=== PATIENT | male | born 1980 | race Caucasian/White ===

== ENCOUNTER 2021-01-28 16:46 | Emergency (ER) | payer SELFPAY ==
[~2021-01-28] VITALS: Ht 188 cm; Wt 73.6 kg
--- NOTE | 2021-01-28 17:14 | RAD ---
EXAM: XR CHEST 1V 01/28/2021 5:00 PM CLINICAL INDICATION: Shortness of breath, history of pneumothorax COMPARISON: None TECHNIQUE: AP upright view of the chest FINDINGS: The heart is normal in size. The lungs are well-expanded. There is suture material at the left apex. No consolidation, pleural effusion or pneumothorax. No acute osseous abnormality. A rectan gular electronic device projects over the mid thoracic spine. IMPRESSION: Surgical changes at the left apex. No acute cardiopulmonary abnormality. Electronically signed by: Maryann Amezquita MD (01/28/2021 5:11 PM) [id number]
[2021-01-28] MEDS ORDERED: ACETAMINOPHEN 325 MG TABLET PO ONE (17:30)
--- NOTE | 2021-01-28 17:36 | EKG ---
[address] [address] Test Date: 2021-01-28 Test Time: 17:24:18 Pat Name: CLEMENCIA LUU Department: Room: Gender: M Control Room Helper: JODY : 1980 Requested By: DAVID LAGOS Order Number: [id number] Reading MD: Abe Finley Measurements Intervals [place] Rate: 87 P: 69 HI: 136 QRS: -39 QRSD: 94 T: 47 QT: 334 QTc: 402 Interpretive Statements SINUS RHYTHM ABNORMAL LEFT AXIS DEVIATION NON SPECIFIC ST-T WAVE CHANGES Electronically Signed On 02-04-2021 10:41:43 RISK MANAGEMENT ANALYST by Abe Finley
--- NOTE | 2021-01-28 17:41 | PHYS DOC ---
Past History Additional Past Medical Histor: marfins syndrome (DAVID LAGOS DO) Past Surgical History: Appendectomy, Other Additional Past Surgical Histo: collapsed lung (DAVID LAGOS DO) General Adult EDM: Chief Complaint: SHORTNESS OF BREATH HPI: HPI: 40-year-old male past medical history of Marfan's and left pneumothoraces status post pleurodesis at 18 (normally follows with [facility]), presents to the ED with complaints of right-sided scapular pain, sharp and radiating around to the chest that started while patient was driving to his worksite. Patient states he was reaching behind his head with his right hand when he heard a pop and the 4/10 pain started. States symptoms are similar to collapsed lung on the left side. Reports some mild associated shortness of breath. Reports arrhythmia in someone in his family and he is currently being monitored by x ray control equipment repairer with a loop recorder. No personal or family history of AAA, AAD, CAD, sudden or unexplain able (under 50 years of age or with exertion), or clotting disorders. (DAVID LAGOS DO) Review of Systems: Review of Systems: Constitutional: Denies fever or chills Eyes: Denies change in visual acuity HENT: Denies nasal congestion or sore throat Respiratory: Denies cough or shortness of breath Cardiovascular: Denies chest pain or edema GI: Denies abdominal pain, nausea, vomiting, bloody stools or diarrhea : Denies dysuria Musculoskeletal: Denies back pain or joint pain Integument: Denies rash Neurologic: Denies headache, focal weakness or sensory changes Endocrine: Denies polyuria or polydipsia Lymphatic: Denies swollen glands Psychiatric: Denies depression or anxiety (DAVID LAGOS DO) Allergies: Allergies: Allergies Coded Allergies Type Severity Reaction Last Updated Verified gluten Allergy Unknown 01/28/21 Yes (DAVID LAGOS DO) Physical Exam: PE: Constitutional: Well developed, well nourished, no acute distress, non-toxic appearance, thin and tall HENT: Normocephalic, atraumatic, Eyes: EOMI, conjunctiva normal, no discharge. Neck: Normal range of motion, supple, Cardiovascular: S1/2 present, regular rhythm Lungs & Thorax: Speaking in full sentences, bilateral equal chest rise, no tachypnea or increased work of breathing Abdomen: soft, no tenderness, Skin: Warm, dry, no erythema, no rash. [] Back: No midline tenderness, no CVA tenderness. [] Extremities: No tenderness, no cyanosis, no lower extremity edema, right shoulder with normal joint range of motion Neurologic: Alert and oriented X 3, normal motor function, normal sensory function, no focal deficits noted. [] Psychologic: Affect normal, judgement normal, mood-anxious (DAVID LAGOS DO) Current Patient Data: Vital Signs: Vital Signs Date Time Temp Pulse Resp B/P (MAP) Pulse Ox O2 Delivery O2 Flow Rate FiO2 01/28/21 16:55 98.5 86 18 131/84 (100) 99 Room Air (DAVID LAGOS DO) EKG: EKG: Sinus rhythm 87 bpm, no T wave inversion, no ST elevation or ST depression, J point elevation in V2, no prior for comparison (DAVID LAGOS DO) EKG: My interpretation EKG shows a sinus rhythm at 87 bpm. No acute morphology. Does have a left axis changes. S2 and 3. But no findings acute STEMI or contralateral changes. Time EKG is 1724 hrs. My interpretation EKG #2 shows a sinus rhythm at 76 bpm. Leftward axis. No acute interval change. No findings of acute STEMI. Time of EKG is 2022 hrs. (LENORE YORK MD) Radiology/Procedures: Radiology/Procedures: [] IMAGING REPORT Signed PATIENT: CLEMENCIA LUU ACCOUNT: [id number] : 1980 LOCATION: ER AGE: 40 SEX: M EXAM STATUS: REG ER ORD. PHYSICIAN: DAVID LAGOS DO REASON: soa, h/o penuomothorax PROCEDURE: CHEST AP ONLY EXAM: XR CHEST 1V 01/28/2021 5:00 PM CLINICAL INDICATION: Shortness of breath, history of pneumothorax COMPARISON: None TECHNIQUE: AP upright view of the chest FINDINGS: The heart is normal in size. The lungs are well-expanded. There is suture material at the left apex. No consolidation, pleural effusion or pneumothorax. No acute osseous abnormality. A rectangular electronic device projects over the mid thoracic spine. IMPRESSION: Surgical changes at the left apex. No acute cardiopulmonary abnormality. Electronically signed by: Maryann Amezquita MD (01/28/2021 5:11 PM) [id number] DICTATED AND SIGNED BY: MARYANN AMEZQUITA MD DATE: 01/28/21 171 CC: [place]; DAVID LAGOS DO ~MTH0 0 (DAVID LAGOS DO) Radiology/Procedures: [place] [id number] IMAGING REPORT Signed PATIENT: CLEMENCIA LUU ACCOUNT: [id number] : 1980 LOCATION: ER AGE: 40 SEX: M EXAM STATUS: REG ER ORD. PHYSICIAN: LENORE YORK MD REASON: hx spont. pneumo, chest pain, dyspnea, OMNI 350, 100ml PROCEDURE: CT ANGIOGRAPHY CHEST Exam: CT of chest with contrast INDICATION: Chest pain, history of spontaneous pneumothorax TECHNIQUE: Sequential axial images through the chest obtained following the administration 100 mL of Omni 350 IV contrast. Sagittal and coronal reformatted images were reconstructed from the axial data and reviewed. 3-D reformatted images were reconstructed from the axial data and reviewed. Exposure: One or more of the following in the visualized dose reduction techniques were utilized for this examination: 1. Automated exposure control 2. Adjustment of the MA and/or KV according to patient size 3. Use of iterative of reconstructive technique Comparisons: Chest x-ray same day FINDINGS: Visualized portions of the thyroid are unremarkable. No enlarged mediastinal lymph nodes are identified. Heart size is normal. No pericardial effusion. Thoracic aorta has a normal course and caliber. Pulmonary artery is not enlarged. No pulmonary embolus identified within the main, lobar or segmental pulmonary arteries. Airways are patent. No consolidation or pneumothorax. No suspicious lung nodules. No pleural effusion or thickening. Visualized upper abdomen is unremarkable. No suspicious osseous lesions or acute fractures. IMPRESSION: No pulmonary embolus identified within the main, lobar or segmental pulmonary arteries. Electronically signed by: Hanna Leong MD (01/28/2021 7:40 PM) [facility] DICTATED AND SIGNED BY: HANNA LEONG MD DATE: 01/28/21 193 CC: LENORE YORK MD; PCP,NO ~MTH0 [address] [address] IMAGING REPORT Signed PATIENT: CLEMENCIA LUU ACCOUNT: [id number] : 1980 LOCATION: ER AGE: 40 SEX: M EXAM STATUS: REG ER ORD. PHYSICIAN: DAVID LAGOS DO REASON: soa, h/o penuomothorax PROCEDURE: CHEST AP ONLY EXAM: XR CHEST 1V 01/28/2021 5:00 PM CLINICAL INDICATION: Shortness of breath, history of pneumothorax COMPARISON: None TECHNIQUE: AP upright view of the chest FINDINGS: The heart is normal in size. The lungs are well-expanded. There is suture material at the left apex. No consolidation, pleural effusion or pneumothorax. No acute osseous abnormality. A rectangular electronic device projects over the mid thoracic spine. IMPRESSION: Surgical changes at the left apex. No acute cardiopulmonary abnormality. Electronically signed by: Maryann Amezquita MD (01/28/2021 5:11 PM) [id number] DICTATED AND SIGNED BY: MARYANN AMEZQUITA MD DATE: 01/28/21 171 CC: PCP,NO; DAVID LAGOS DO ~MTH0 0 (LENORE YORK MD) Heart Score: C/O Chest Pain: Yes HEART Score for Chest Pain: HEART Score for Chest Pain Response (Comments) Value History Slighlty/Non-Suspicious 0 ECG Normal 0 Age < 45 0 Risk Factors 1 or 2 Risk Factors 1 Total 1 Risk Factors: Risk Factors: DM, Current or recent (<one month) smoker, HTN, HLP, family history of CAD, obesity. Risk Scores: Score 0 - 3: 2.5% MACE over next 6 weeks - Discharge Home Score 4 - 6: 20.3% MACE over next 6 weeks - Admit for Clinical Observation Score 7 - 10: 72.7% MACE over next 6 weeks - Early Invasive Strategies (DAVID LAGOS DO) HEART Score for Chest Pain: HEART Score for Chest Pain Response (Comments) Value History Slighlty/Non-Suspicious 0 ECG Normal 0 Age < 45 0 Risk Factors 1 or 2 Risk Factors 1 Troponin < Normal Limit 0 Total 1 Course & Med Decision Making: Course & Med Decision Making Pertinent Labs and Imaging studies reviewed. (See chart for details) Concern for right-sided back pain that radiates around to the chest and male with history of Marfan's. Chest x-ray with no signs of pneumothoraces or widened mediastinum. EKG with J-point elevation in V2. Labs including troponin, D-dimer and urinalysis for hematuria are pending. Patient with no history of enlarged aorta-has been followed by cardiology since 8 years of age. Due to shift change patient signed out to oncoming physician Dr. York for fu rther medical management disposition. (DAVID LAGOS DO) Course & Med Decision Making See Dr. Lagos chart for details, prior shift change. Impression: 1. Chest Wall pain 2. Hx. Marfan Syndrome 3. Hx. Spontaneous pneumothorax with surgical repair 4. History follows with cardiology for loop recorder-dysrhythmia (LENORE YORK MD) Dragon Disclaimer: Dragon Disclaimer: This electronic medical record was generated, in whole or in part, using a voice recognition dictation system. (DAVID LAGOS DO) Departure Departure: Referrals: PCP,NO (PCP) Dragon Disclaimer This chart was dictated in whole or in part using Voice Recognition software in a busy, high-work load, and often noisy Emergency Department environment. It may contain unintended and wholly unrecognized errors or omissions. (LENORE YORK MD) DAVID LAGOS DO Jan 28, 2021 17:41 LENORE YORK MD Jan 28, 2021 18:47
[2021-01-28 18:03] LABS: BASO # 0.1 x10^3/uL (0.0-0.2); BASO % 1 % (0-3); EOS # 0.1 x10^3/uL (0.0-0.7); EOS % 2 % (0-3); HEMATOCRIT 48.8 % (39.0-53.0); HEMOGLOBIN 16.6 g/dL (13.0-17.5); LYMPH # 1.4 x10^3/uL (1.0-4.8); LYMPH % 24 % (24-48); MEAN CORPUSCULAR HEMOGLOBIN 30 pg (25-35); MEAN CORPUSCULAR HGB CONC 34 g/dL (31-37); MEAN CORPUSCULAR VOLUME 88 fL (79-100); MONO # 0.6 x10^3/uL (0.0-1.1); MONO % 11 % (0-9); NEUT # 3.5 x10^3uL (1.8-7.7); NEUT % 62 % (31-73); PLATELET COUNT 257 x10^3/uL (140-400); RED BLOOD COUNT 5.57 x10^6/uL (4.30-5.70); RED CELL DISTRIBUTION WIDTH 13.8 % (11.5-14.5); WHITE BLOOD COUNT 5.6 x10^3/uL (4.0-11.0)
[2021-01-28 18:12] LABS: CALCIUM 9.6 mg/dL (8.5-10.1); CREATININE 0.8 mg/dL (0.7-1.3); GFR 107.6; POTASSIUM 3.8 mmol/L (3.5-5.1)
[2021-01-28 18:24] LABS: ALBUMIN 4.3 g/dL (3.4-5.0); ALBUMIN/GLOBULIN RATIO 1.3 (1.0-1.7); MAGNESIUM 2.5 mg/dL (1.8-2.4); TOTAL BILIRUBIN 0.5 mg/dL (0.2-1.0); TOTAL PROTEIN 7.7 g/dL (6.4-8.2)
[2021-01-28] MEDS ORDERED: IOHEXOL 350 MG/ML 100 ML VIAL. IV ONE (19:00)
[2021-01-28] MEDS ORDERED: KETOROLAC 30 MG/ML VIAL. IVP ONE (19:00)
[2021-01-28 19:01] LABS: BARBITURATES NEG (NEG); BENZODIAZEPINES NEG (NEG); CANNABINOIDS NEG (NEG); COCAINE NEG (NEG); METHADONE NEG (NEG); OPIATES NEG (NEG); PHENCYCLIDINE NEG (NEG)
[2021-01-28 19:05] LABS: AMPHETAMINE/METHAMPHETAMINE NEG (NEG)
[2021-01-28 19:13] LABS: BILIRUBIN,URINE NEG (NEG); CLARITY,URINE CLEAR; COLOR,URINE YELLOW; GLUCOSE,URINE NEG (NEG)
[2021-01-28 19:14] LABS: BACTERIA,URINE 0 /HPF (0-FEW); NITRITE,URINE NEG (NEG); RBC,URINE 0 /HPF (0-2); SQUAMOUS EPITHELIAL CELL,UR OCC /LPF; UROBILINOGEN,URINE 0.2 mg/dL (0.2 mg/dL); WBC,URINE 0 /HPF (0-4)
--- NOTE | 2021-01-28 19:42 | RAD ---
Exam: CT of chest with contrast INDICATION: Chest pain, history of spontaneous pneumothorax TECHNIQUE: Sequential axial images through the chest obtained following the administration 100 mL of Omni 350 IV contrast. Sagittal and coronal reformatted images were reconstructed from the axial data and reviewed. 3-D reformatted images were reconstructed from the axial data and reviewed. Exposure: One or more of the following in the visualized dose reduction techniques were utilized for this examination: 1. Automated exposure control 2. Adjustment of the MA and/or KV according to patient size 3. Use of iterative of reconstructive technique Comparisons: Chest x-ray same day FINDINGS: Visualized portions of the thyroid are unremarkable. No enlarged mediastinal lymph nodes are identifi ed. Heart size is normal. No pericardial effusion. Thoracic aorta has a normal course and caliber. Pulmon abel artery is not enlarged. No pulmonary embolus identified within the main, lobar or segmental pulmo nary arteries. Airways are patent. No consolidation or pneumothorax. No suspicious lung nodules. No pleural effusion or thickening. Visualized upper abdomen is unremarkable. No suspicious osseous lesions or acute fractures. IMPRESSION: No pulmonary embolus identified within the main, lobar or segmental pulmonary arteries. Electronically signed by: Hanna Zhou MD (01/28/2021 7:40 PM) [facility]
[2021-01-28 20:24] VITALS: BP 135/61
[2021-01-28] MEDS ORDERED: ORPHENADRINE CITRATE 60 MG/2 ML VIAL. IV ONE (20:45)
--- NOTE | 2021-01-29 07:42 | EKG ---
[address] [address] Test Date: 2021-01-28 Test Time: 20:23:45 Pat Name: CLEMENCIA LUU Department: Room: Gender: M Oxyacetylene Burner: TAVON : 1980 Requested By: LENORE MAE Order Number: [id number] Reading MD: Abe Finley Measurements Intervals [place] Rate: 76 P: 50 UT: 138 QRS: 0 QRSD: 92 T: 13 QT: 368 QTc: 418 Interpretive Statements SINUS RHYTHM LEFTWARD AXIS MILD NON SPECIFIC ST CHANGES Electronically Signed On 02-04-2021 10:39:53 MANAGER TECHNICAL SUPPORT by Abe Finley
== END 2021-01-28 21:30 | disposition home or self-care (01) ==
LOC: ER 16:46
DX: R07.89 Other chest pain (principal); M25.511 Pain in right shoulder; R06.02 Shortness of breath; Z88.8 Allergy status to other drugs, medicaments and biological substances
CPT/HCPCS: 36415; 71045; 71275; 80053; 80307; 81001; 83735; 83880; 84484; 85025; 85379; 93005; 96374; 99285; J1885; Q9967